=== PATIENT | male | born 1985 | race Caucasian/White ===

== ENCOUNTER 2018-02-18 22:07 | Emergency (ER) | payer SELFPAY ==
[2018-02-18 22:43] LABS: Bilirubin Negative (Negative); Blood, Urine Negative (Negative); Clarity CLEAR (Clear); Glucose, Urine (Dipstick) Negative (Negative); Leukocyte Negative (Negative); Nitrite Negative (Negative); Protein, Urine (Dipstick) Trace mg/dL (Neg-Trace); Urobilinogen 0.2 mg/dL (0.2-1.0)
[2018-02-18 22:52] LABS: Amphetamine Not Detected (NotDetected); Barbiturates Screen Not Detected (NotDetected); Benzodiazepine Screen Not Detected (NotDetected); Cocaine Metabolite Screen Not Detected (NotDetected); Medtox Control Line Valid? VALID (VALID); Medtox Reader # READER 1; Methadone Not Detected (NotDetected); Methamphetamine Not Detected (NotDetected); Opiate Screen Not Detected (NotDetected); Oxycodone Screen Not Detected (NotDetected); Phencyclidine (PCP) Not Detected (NotDetected); THC/Cannabinoid Screen Not Detected (NotDetected); Tricyclic Screen Not Detected (NotDetected)
[2018-02-18 22:56] LABS: #Basophils 0.1 thou/uL (0.0-0.2); #Eosinphils 0.1 thou/uL (0.0-0.7); #Lymphocytes 1.3 thou/uL (1.20-3.40); #Monocytes 1.1 thou/uL (0.11-0.59); #Neutrophils 12.8 thou/uL (1.40-6.50); %Basophils 0.6 % (0.0-1.0); %Eosinophils 0.3 % (0.0-10.0); %Lymphocytes 8.3 % (21.0-51.0); %Monocytes 7.1 % (0.0-10.0); %Neutrophils 83.6 % (42.0-75.0); Hemoglobin 14.9 g/dL (14.0-18.0); Mean Corpuscular HGB CONC 36.4 g/dL (32.0-36.0); Mean Corpuscular Hemoglobin 33.1 pg (27.0-31.0); Mean Corpuscular Volume 90.8 fl (80.0-94.0); Mean Platelet Volume 6.4 fL (7.4-10.4); Platelet Count 340 thou/uL (130-400); RBC Distribution Width 11.4 % (11.5-14.5); Red Blood Cell (RBC) Count 4.51 mill/uL (4.70-6.10); White Blood Cell (WBC) Count 15.3 thou/uL (4.8-10.8)
[2018-02-18 23:19] LABS: ALT (SGPT) 57 U/L (8-55); AST (SGOT) 70 U/L (5-34); Acetaminophen Less than 6.0 mcg/mL (10.0-30.0); Albumin 5.1 g/dL (3.5-5.0); Alcohol Less than 10 mg/dL (Less than 10); Alkaline Phosphatase 69 U/L (40-150); Anion Gap 21 mmol/L (10-20); BUN (Urea Nitrogen) 21 mg/dL (8.9-20.6); Bilirubin, Total 1.2 mg/dL (0.2-1.2); Calc. Creatinine Clearance 0 mL/min (70-130); Calcium 9.6 mg/dL (7.8-10.44); Carbon Dioxide 22 mmol/L (22-29); Chloride 97 mmol/L (98-107); Estimated GFR-MDRD 79; Globulin 3.1 g/dL (2.4-3.5); Glucose 86 mg/dL (70-105); Potassium 3.6 mmol/L (3.5-5.1); Protein, Total 8.2 g/dL (6.0-8.3); Salicylate Less than 8.0 mg/dL (15.0-30.0); Sodium 136 mmol/L (136-145)
[2018-02-18] MEDS ORDERED: Lorazepam 2 MG/ML VIAL ONE (23:19)
[2018-02-19] MEDS ORDERED: diphenhydrAMINE 50 MG CAP ONE (00:09)
[2018-02-19] MEDS ORDERED: Haloperidol Lactate 5 MG/ML VIAL ONE (00:09)
[2018-02-19] MEDS ORDERED: Lorazepam 2 MG/ML VIAL ONE (00:47)
[2018-02-19 01:32] LABS: Base Excess-Venous -0.3 mmol/L (0 (+/- 2.5)); Bicarbonate (HCO3v) 23.9 mmol/L (1.0-85.0); Calcium, Ionized 1.09 mmol/L (1.12-1.32); Hemoglobin - Calc 13.3 g/dL (12.0-18.0); O2 Tension (PvO2) 70.7 mmHg (35.0-45.0); Potassium 3.5 mmol/L (3.4-4.7); T. Carbon Dioxide 25.1 mmol/L (1.0-85.0); pH (Venous) 7.419 (7.35-7.45); vO2 Saturation-calc 94.4 % (94-98)
--- NOTE | 2018-02-19 10:02 | CT ---
PRELIMINARY REPORT/[facility]/EMERGENTY AFTER-HOURS PROCEDURE CT Head Without Intravenous Contrast CLINICAL HISTORY: 32 years old, male; Signs and symptoms; Altered mental status/memory loss; Confusion or disorientatio n; Patient HX: M32 presents to ed for a psych eval. PT reports he did not take his medicine today and is forgetful without it. PT does not know if he smokes cigarettes or drinks. PT is confused and cannot give an accurate history TECHNIQUE: Axial computed tomography images of the head/brain without intravenous contrast. COMPARISON: No relevant prior studies available. FINDINGS: Brain: Mild volume loss No hemorrhage. No significant white matter disease. No edema. Ventricles: Normal. No ventriculomegaly. Bones/joints: Chronic left maxillary sinus wall and orbital wall fractures. Chronic left zygomatic ar ch fracture No acute fracture. Sinuses: Normal as visualized. No acute sinusitis. Mastoid air cells: Normal as visualized. No mastoid effusion. Soft tissues: Normal. IMPRESSION: No intracranial hemorrhage. Please see discussion above. Thank you for allowing us to participate in the care of your patient. Dictated and Authenticated by: Wu Alfredo MD 02/19/2018 3:49 AM Central Time ([place] & [place]) FINAL REPORT HEAD CT WITHOUT CONTRAST: Date: 02/19/18 COMPARISON: None. HISTORY: Altered mental status, confusion, disorientation, memory loss. FINDINGS: I agree with the preliminary report given by Soraida. There is postoperative hardware associated with th e left facial bones associated with prior extensive left-sided facial trauma. Imaged paranasal sinuse s and mastoid air cells appear grossly unremarkable. Evaluation is slightly limited by motion. No int racranial hemorrhage, midline shift, or mass effect. IMPRESSION: No acute findings. POS: [facility]
[2018-02-19] MEDS ORDERED: Acetaminophen 500 MG TAB ONE ×3 (11:41→19:10)
[2018-02-19] MEDS ORDERED: Diazepam 5 MG TAB ONE (12:37)
[2018-02-19] MEDS ORDERED: Bacitracin Zinc 1 Packet ONE (12:38)
[2018-02-19] MEDS ORDERED: Ziprasidone 20 MG CAP ONE (17:56)
[2018-02-19] MEDS ORDERED: hydrOXYzine 25 MG TAB ONE (19:04)
[2018-02-19] MEDS ORDERED: traZODone HCl 50 MG TAB ONE (19:04)
[2018-02-20] MEDS ORDERED: hydrOXYzine Pamoate 25 mg Capsule ONE (05:00)
[2018-02-20] MEDS ORDERED: OLANZapine 5 MG TAB PO SCH (09:45)
[2018-02-20] MEDS ORDERED: Ziprasidone 20 MG VIAL ONE ×2 (10:33→17:58)
[2018-02-20] MEDS ORDERED: Water For Injection,Sterile 20 ML ONE (10:33)
[2018-02-20] MEDS ORDERED: Bacitracin Zinc 1 Packet ONE (17:54)
[2018-02-20] MEDS ORDERED: Water For Inject, Bacteriostat 30 ML ONE (17:59)
[2018-02-20] MEDS ORDERED: diphenhydrAMINE 50 MG CAP ONE (22:14)
[2018-02-20] MEDS ORDERED: hydrOXYzine 25 MG TAB ONE (23:15)
[2018-02-20] MEDS ORDERED: traZODone HCl 50 MG TAB ONE (23:22)
[2018-02-21] MEDS ORDERED: hydrALAZINE 25 MG TAB ONE (00:17)
[2018-02-21] MEDS ORDERED: hydrOXYzine 25 MG TAB ONE (00:18)
[2018-02-21] MEDS ORDERED: Water For Injection,Sterile 20 ML ONE (02:58)
[2018-02-21] MEDS ORDERED: Ziprasidone 20 MG VIAL ONE (02:58)
[2018-02-21] MEDS ORDERED: hydrOXYzine Pamoate 25 mg Capsule ONE (08:01)
[2018-02-21] MEDS ORDERED: Lorazepam 1 MG TAB ONE ×2 (08:54→13:24)
[2018-02-21] MEDS ORDERED: diphenhydrAMINE 50 MG CAP ONE (13:10)
[2018-02-21] MEDS ORDERED: Ziprasidone 20 MG CAP ONE (17:58)
[2018-02-21] MEDS ORDERED: Bacitracin Zinc 1 Packet ONE (18:41)
[2018-02-22] MEDS ORDERED: traZODone HCl 50 MG TAB ONE (02:58)
[2018-02-22] MEDS ORDERED: diphenhydrAMINE 50 MG CAP ONE (03:08)
[2018-02-22] MEDS ORDERED: Ziprasidone 20 MG VIAL ONE (04:57)
[2018-02-22] MEDS ORDERED: Water For Inject, Bacteriostat 30 ML ONE (04:58)
[2018-02-22] MEDS ORDERED: Bacitracin Zinc 1 Packet ONE (05:04)
[2018-02-22] MEDS ORDERED: hydrOXYzine 25 MG TAB ONE (08:48)
[2018-02-22] MEDS ORDERED: Haloperidol Lactate 5 MG/ML VIAL ONE (09:59)
[2018-02-22] MEDS ORDERED: diphenhydrAMINE 50 MG/ML VIAL ONE (09:59)
[2018-02-22] MEDS ORDERED: Lorazepam 1 MG TAB ONE (10:00)
--- NOTE | 2018-02-22 11:49 | CT ---
BRAIN CT WITHOUT IV CONTRAST: Date: 02/22/18 HISTORY: 32-year-old male with history of psych evaluation, forgetful. Unable to obtain an adequate history. A ltered mental status. COMPARISON: 02/19/18. FINDINGS: No focal mass or midline shift. No intra or extra-axial hemorrhage. Evidence for old surgery involvin g the left orbit and maxillary region. Stable from prior study. IMPRESSION: No mass or bleed, or other acute process. Stable from 02/19/18. POS: [facility]
== END 2018-02-22 19:29 ==
LOC: ERS 22:07
DX: F23 Brief psychotic disorder (principal); R74.8 Abnormal levels of other serum enzymes; F90.9 Attention-deficit hyperactivity disorder, unspecified type; F42.9 Obsessive-compulsive disorder, unspecified; Z79.899 Other long term (current) drug therapy
CPT/HCPCS: 36415; 70450; 80053; 80306; 80307; 81003; 82330; 82435; 82550; 82803; 83930; 84132; 84295; 84443; 85014; 85025; 93005; 96360; 96361; 96372; J1200; J1630; J2060; J3486; Q0177

== ENCOUNTER 2018-03-30 16:01 | Emergency (ER) | payer SELFPAY ==
[2018-03-30 16:44] LABS: #Basophils 0.1 thou/uL (0.0-0.2); #Eosinphils 0.2 thou/uL (0.0-0.7); #Monocytes 0.8 thou/uL (0.11-0.59); #Neutrophils 3.9 thou/uL (1.40-6.50); %Basophils 0.9 % (0.0-1.0); %Eosinophils 3.6 % (0.0-10.0); %Lymphocytes 28.9 % (21.0-51.0); %Neutrophils 55.6 % (42.0-75.0); Hemoglobin 13.3 g/dL (14.0-18.0); Mean Corpuscular HGB CONC 35.3 g/dL (32.0-36.0); Mean Corpuscular Hemoglobin 32.2 pg (27.0-31.0); Mean Corpuscular Volume 91.2 fL (78.0-98.0); Mean Platelet Volume 7.1 fL (7.4-10.4); Platelet Count 207 thou/uL (130-400); RBC Distribution Width 11.8 % (11.5-14.5); Red Blood Cell (RBC) Count 4.11 mill/uL (4.70-6.10)
[2018-03-30 17:01] LABS: Bilirubin Negative (Negative); Blood, Urine Negative (Negative); Clarity CLEAR (Clear); Glucose, Urine (Dipstick) Negative (Negative); Leukocyte Negative (Negative); Nitrite Negative (Negative); Protein, Urine (Dipstick) Negative (Neg-Trace); Specific Gravity, Urine 1.029 (1.002-1.036); Urobilinogen 0.2 mg/dL (0.2-1.0)
[2018-03-30 17:05] LABS: Acetaminophen Less than 6.0 mcg/mL (10.0-30.0); Alcohol Less than 10 mg/dL (Less than 10); CK (CPK) 122 U/L (30-200); Salicylate Less than 8.0 mg/dL (15.0-30.0)
[2018-03-30 17:05] LABS: ALT (SGPT) 30 U/L (8-55); AST (SGOT) 24 U/L (5-34); Albumin 4.2 g/dL (3.5-5.0); Alkaline Phosphatase 63 U/L (40-150); Anion Gap 13 mmol/L (10-20); BUN (Urea Nitrogen) 16 mg/dL (8.9-20.6); Bilirubin, Total 0.2 mg/dL (0.2-1.2); Calc. Creatinine Clearance 0 mL/min (70-130); Calcium 8.9 mg/dL (7.8-10.44); Carbon Dioxide 25 mmol/L (22-29); Chloride 107 mmol/L (98-107); Estimated GFR-MDRD Greater than 90; Globulin 2.5 g/dL (2.4-3.5); Glucose 102 mg/dL (70-105); Potassium 3.7 mmol/L (3.5-5.1); Protein, Total 6.7 g/dL (6.0-8.3); Sodium 141 mmol/L (136-145)
[2018-03-30 17:10] LABS: Amphetamine Not Detected (NotDetected); Barbiturates Screen Not Detected (NotDetected); Benzodiazepine Screen Not Detected (NotDetected); Cocaine Metabolite Screen Not Detected (NotDetected); Medtox Control Line Valid? VALID (VALID); Medtox Reader # READER 1; Methadone Not Detected (NotDetected); Methamphetamine Not Detected (NotDetected); Opiate Screen Not Detected (NotDetected); Oxycodone Screen Not Detected (NotDetected); Phencyclidine (PCP) Not Detected (NotDetected); THC/Cannabinoid Screen Not Detected (NotDetected); Tricyclic Screen Not Detected (NotDetected)
[2018-03-30] MEDS ORDERED: Diazepam 5 MG TAB ONE (17:45)
[2018-03-30] MEDS ORDERED: OLANZapine 5 MG TAB ONE (19:28)
[2018-03-30] MEDS ORDERED: cloNIDine 0.1 MG TAB ONE (19:28)
[2018-03-31] MEDS ORDERED: Diazepam 5 MG TAB ONE ×4 (04:20→23:43)
[2018-03-31] MEDS ORDERED: cloNIDine 0.1 MG TAB ONE (23:35)
== END 2018-04-02 13:09 | disposition home or self-care (01) ==
LOC: ERS 16:01
DX: F19.959 Other psychoactive substance use, unspecified with psychoactive substance-induced psychotic disorder, unspecified (principal); R45.851 Suicidal ideations; F41.9 Anxiety disorder, unspecified; F32.9 Major depressive disorder, single episode, unspecified; F90.9 Attention-deficit hyperactivity disorder, unspecified type; Z79.899 Other long term (current) drug therapy
CPT/HCPCS: 36415; 80053; 80306; 80307; 81003; 82550; 84443; 85025; 93005; 96372